=== PATIENT | male | born 1970 | race African-American/Black ===

== ENCOUNTER 2018-09-01 15:23 | Emergency (ER) | payer OTHER ==
[~2018-09-01] VITALS: Ht 160 cm; Wt 59.0 kg
[2018-09-01] MEDS ORDERED: PENICILLIN V P500 MG PO (16:23)
[2018-09-01 18:10] VITALS: BP 112/68
== END 2018-09-01 16:53 | disposition home or self-care (01) ==
LOC: ER 15:23
DX: J02.9 Acute pharyngitis, unspecified (principal); F20.9 Schizophrenia, unspecified